=== PATIENT | male | born 1990 | race Caucasian/White ===

== ENCOUNTER 2024-10-17 08:04 | Emergency (ER) | payer OTHER ==
[~2024-10-17] VITALS: Ht 187.9 cm; Wt 108.9 kg
== END 2024-10-17 09:36 | disposition home or self-care (01) ==
LOC: ED 08:04
DX: R51.9 Headache, unspecified (principal); R53.1 Weakness

== ENCOUNTER 2024-12-18 06:05 | Emergency (ER) | payer OTHER ==
[~2024-12-18] VITALS: Ht 187.9 cm; Wt 113.4 kg
[2024-12-18 06:38] LABS: BASO % 0.5 % (0.0-1.0); EOS # 0.2 10*3/uL (0.0-0.4); EOS % 2.5 % (1.0-4.0); HEMATOCRIT 47.6 % (42.0-52.0); MEAN CELL VOLUME 91.7 fl (80.0-94.0); MEAN CORPUSCULAR HGB 30.1 pg (27.0-31.0); MEAN CORPUSCULAR HGB CONC 32.8 g/dl (33.0-37.0); MEAN PLATELET VOLUME 12.3 fl (9.6-12.3); MONO # 0.4 10*3/uL (0.1-1.0); MONO % 7.4 % (3.0-9.0); NEUT % 67.4 % (47.0-73.0); PLATELET COUNT AUTOMATED 147 10*3/uL (130-400); RED BLOOD COUNT 5.19 10*6/uL (4.50-5.90); RED CELL DISTRI WIDTH 12.2 % (0-14.5); WHITE BLOOD COUNT 5.9 10*3/uL (4.8-10.8)
[2024-12-18 06:48] LABS: ALKALINE PHOSPHATASE 60 U/L (46-116); BUN 17 mg/dl (9-23); CHLORIDE 103 mmol/L (98-107); LIPASE 39 U/L (12-53); POTASSIUM 4.2 mmol/L (3.4-5.1); SGPT/ALT 13 U/L (5-49); TOTAL PROTEIN 7.4 gm/dL (6.0-8.0)
[2024-12-18] MEDS ORDERED: Ondansetron Hydrochloride 4 MG TAB SL ONE (06:55)
[2024-12-18] MEDS ORDERED: Ondansetron4 MG PO (07:26)
== END 2024-12-18 07:33 | disposition home or self-care (01) ==
LOC: ED 06:05
PROVIDERS: Internal Medicine
DX: R11.2 Nausea with vomiting, unspecified (principal); Z20.822 Contact with and (suspected) exposure to COVID-19; R19.7 Diarrhea, unspecified; R50.9 Fever, unspecified; R10.13 Epigastric pain